=== PATIENT | male | born 2000 | race Asian ===

== ENCOUNTER 2024-04-07 04:12 | Day surgery (SDC) | payer OTHER ==
[2024-04-04 10:11] VITALS: BMI 21.6
[2024-04-07 06:51] VITALS: RESP 16
[2024-04-07] MEDS ORDERED: MIDAZOLAM HCL 2 MG/2 ML SINGLE DOSE VIAL ONE (07:58)
[2024-04-07] MEDS ORDERED: ONDANSETRON 4 MG/2 ML VIAL IVPUSH ONE (08:40)
[2024-04-07] MEDS ORDERED: ONDANSETRON 4 MG/2 ML VIAL ONE (08:42)
[2024-04-07 10:51] VITALS: BP 101/69; PULSE 67; TEMP 97
== END 2024-04-07 11:10 | disposition home or self-care (01) ==
LOC: JASU-SURG 04:12
PROVIDERS: ATTEND Urology
PROC: 0TF7XZZ Fragmentation in Left Ureter, External Approach (ICD-10-PCS; principal; 2024-04-07 07:30)
DX: N20.0 Calculus of kidney (principal)